=== PATIENT | male | born 1940 | race Two or more races ===

== ENCOUNTER 2019-06-28 17:28 | Inpatient (IN) | payer OTHER, MEDICAID ==
[~2019-06-28] VITALS: Ht 175.3 cm; Wt 92.1 kg
[~2019-06-28 17:28] MED LIST: AMLO5TAB9 PO; CLON0.1T14 PO; CLON0.5T PO; DIPH50CA37 PO; LISI-603 PO; PANT40TA2 PO; PRED20TA PO; TEMA30CA5 PO; TRIA60LO8 TP; TYL2T PO; [UNRECOGNIZED DRUG - CODE] PO
--- NOTE | 2019-06-28 17:35 | NUR ---
LUIZA 79 YEAR OLD MALE, CAME FROM [facility] C/O ABD PAIN, ALERT AND ORIENTED TO TACTILE STIMULI NON VERBAL. BREATHING EVEN UNLABORED. SKIN INTACT. WAITING TO BE SEEN BY .
[2019-06-28] MEDS ORDERED: IV NS 0.9% 500 ML BAG IV ONE (18:00)
[2019-06-28 18:12] LABS: BASOPHILS # (AUTO) 0.1 /CMM (0.0-0.2); BASOPHILS % (AUTO) 0.5 % (0.0-2.0); EOSINOPHILS % (AUTO) 3.1 % (0.0-6.0); HEMATOCRIT 44 % (39-51); HEMOGLOBIN 14.8 g/dL (13.5-17.5); LYMPHOCYTES % (AUTO) 25.8 % (20.0-44.0); MEAN CORPUSCULAR HGB CONC 33 g/dl (31.0-36.0); MEAN CORPUSCULAR VOLUME 90 fL (80-96); MONOCYTES # (AUTO) 1.2 /CMM (0.1-1.30); MONOCYTES % (AUTO) 10.3 % (2.0-12.0); NEUTROPHILS % (AUTO) 60.3 % (43.0-81.0); PLATELET COUNT (AUTO) 239 /CMM (150-450); RED BLOOD CELL COUNT(AUTO) 4.95 MIL/uL (4.5-6.0); WHITE BLOOD COUNT (AUTO) 11.7 K/uL (4.3-11.0)
--- NOTE | 2019-06-28 18:12 | NUR ---
URINE COLLECTED SENT TO LAB
[2019-06-28] MEDS ORDERED: GABA-534 PO (18:14)
[2019-06-28] MEDS ORDERED: CHOL20004 PO (18:14)
[2019-06-28] MEDS ORDERED: ASPI-605 PO (18:14)
[2019-06-28] MEDS ORDERED: FENO145T35 PO (18:14)
[2019-06-28] MEDS ORDERED: ATOR40TA PO (18:14)
[2019-06-28] MEDS ORDERED: GLIP10TA11 PO (18:14)
[2019-06-28] MEDS ORDERED: ISOS30TA6 PO (18:14)
--- NOTE | 2019-06-28 18:21 | NUR ---
PATIENT HAD X1 BM
[2019-06-28 18:22] LABS: CALCIUM, SERUM 9.4 mg/dL (8.5-10.1); CARBON DIOXIDE 27 mmol/L (21-32); CHLORIDE 104 mmol/L (98-107); CREATININE 1.5 mg/dL (0.6-1.3); GLUCOSE 201 mg/dL (74-106); POTASSIUM 3.5 mmol/L (3.5-5.1); SODIUM SERUM 141 mmol/L (136-145); UREA NITROGEN, BLOOD 12 mg/dL (7-18)
[2019-06-28 18:31] LABS: APPEARANCE,URINE Clear (CLEAR); BILIRUBIN,URINE Negative (NEGATIVE); BLOOD, URINE Moderate Ery/uL (NEGATIVE); COLOR,URINE Yellow (YELLOW); KETONES,URINE Trace (NEGATIVE); LEUKOCYTE ESTERASE ,URINE Negative (NEGATIVE); NITRITE, URINE Negative (NEGATIVE); PH,URINE 5.5 (5.0-8.0); PROTEIN,URINE 30 mg/dl (NEGATIVE); UGLUCOSE 250 MG/DL mg/dL (NEGATIVE)
[2019-06-28 18:36] LABS: ALANINE AMINOTRANSFERASE 18 U/L (12-78); ALBUMIN 3.5 g/dL (3.4-5.0); ALKALINE PHOSPHATASE 67 U/L (46-116); ASPARTATE AMINOTRANSFERASE 21 U/L (15-37); BILIRUBIN,DIRECT 0.2 mg/dL (0.0-0.2); BILIRUBIN,TOTAL 0.5 mg/dL (0.2-1.0); TOTAL PROTEIN, SERUM 7.3 g/dL (6.4-8.2)
--- NOTE | 2019-06-28 18:45 | NUR ---
CALLED NURSING SUP FOR TELE BED
--- NOTE | 2019-06-28 18:50 | NUR ---
TELE 114-1
[2019-06-28 19:07] LABS: WBC,URINE 0-2 /HPF (0-3)
[2019-06-28 19:08] LABS: BACTERIA,URINE Few /HPF (None Seen); SQUAMOUS EPITHELIAL CELL,UR Few /HPF (None Seen); URINE AMORPHOUS URATE Few /HPF (None Seen)
--- NOTE | 2019-06-28 19:15 | NUR ---
PT RECEIVED FROM DEMETRIUS RAMIREZ FOR FRANSICO. PT IN BED SLEEPING. NAD NOTED
--- NOTE | 2019-06-28 19:16 | NUR ---
REPORT GIVEN TO CURTIS FOR CONTINUITY OF CARE
--- NOTE | 2019-06-28 19:33 | NUR ---
PAGED DR. NICKERSON
--- NOTE | 2019-06-28 19:55 | NUR ---
PREPORT GIVEN TO DEMETRIUS OBREGON FOR FRANSICO.
--- NOTE | 2019-06-28 20:32 | NUR ---
REPAGED FOR THE 3RD TIME.
--- NOTE | 2019-06-28 21:05 | NUR ---
PT TRANSPORTED TO UNIT WITH RN AND EMT AT BEDSIDE W/ ACLS PROTOCOL. NAD NOTED DURING TRANSPORT
--- NOTE | 2019-06-28 21:30 | NUR ---
AUTOCLAVE OPERATOR ADMITTING NOTES RECEIVED REPORT FROM CURTIS ROMO. PATIENT ARRIVED VIA GURNEY & ADMITTED TO ROOM 114-1 W/ DX ALTERED MENTAL STATUS/ABDOMINAL PAIN UNDER CARE OF DR NICKERSON. PATIENT ALTERED & UNABLE TO ANSWER QUESTIONS OR FOLLOW COMMANDS BUT RESPONSIVE TO TACTILE & PAIN STIMULI. BREATHING EVEN & UNLABORED, TOLERATING ROOM AIR & SATING 96%. NO RESPIRATORY DISTRESS NOTED. ON TELE W/ SINUS RHYTHM, HR 70S. RIGHT HAND IV #22 INTACT & PATENT W/ DRESSING CDI, SALINE LOCKED. SKIN ASSESSMENT DONE W/ NO SKIN ISSUES NOTED. NO S/S OF PAIN OR DISCOMFORT @ THIS TIME. SAFETY MEASURES IN PLACE W/ SIDE RAILS UP & BED ALARM ON. AWAITING ADMITTING ORDERS. PATIENT RESTING COMFORTABLY IN BED. WILL CONTINUE TO MONITOR.
[2019-06-28 22:00] VITALS: BP 143/96
[2019-06-28 22:26] VITALS: BP_SYST 118; BP_SYST 143; BP_DIAS 61; BP_DIAS 96
[2019-06-28] MEDS ORDERED: INSULIN REGULAR, HUMAN 100 UNIT/ML 3 ML VIAL SQ PRN (23:00)
[2019-06-28] MEDS ORDERED: ZOLPIDEM TARTRATE 5 MG TABLET PO PRN (23:00)
[2019-06-28] MEDS ORDERED: MAGNESIUM HYDROXIDE 30 ML UDC PO PRN (23:00)
[2019-06-28] MEDS ORDERED: LACTULOSE 10 G/15 ML UDC (PYXIS) PO PRN (23:00)
[2019-06-28] MEDS ORDERED: DEXTROSE 50%-WATER 50 ML DISP.SYRIN IV PRN (23:00)
[2019-06-28] MEDS ORDERED: ACETAMINOPHEN 325 MG TABLET PO PRN (23:00)
[2019-06-28] MEDS ORDERED: Z GUARD REMEDY 2 OZ OINT TP PRN (23:00)
[2019-06-28] MEDS ORDERED: ONDANSETRON HCL/PF 4 MG/2 ML VIAL IVP PRN (23:00)
[2019-06-28] MEDS ORDERED: HYDROCODONE/APAP 5/325MG 1 EACH TABLET PO PRN (23:00)
[2019-06-29] VITALS: BP 152/93
[2019-06-29 04:00] VITALS: BP_SYST 163; BP_DIAS 79; BP_DIAS 99
--- NOTE | 2019-06-29 05:25 | NUR ---
CONTROL CLERK AUDITING NOTES 0520 PATIENT MORE RESPONSIVE DURING PATIENT CARE. NOTED TO BE MOVING & RAISING LEFT ARM BUT UNABLE TO MOVE RIGHT ARM. UPON FURTHER ASSESSMENT, NO FACIAL DROOP NOTED BUT UNABLE TO OPEN LEFT EYE. ALSO NON-VERBAL @ THIS TIME, ONLY MOANING. LOWER EXTREMITIES REACTIVE TO TACTILE STIMULI BUT NOTED WEAKNESS ON RIGHT LEG.
--- NOTE | 2019-06-29 05:32 | NUR ---
RIPRAP PLACING SUPERVISOR NOTES 2934 CHARGE NURSE KALEIGH & ICU ANGELLA DE DIOS @ BEDSIDE.
--- NOTE | 2019-06-29 05:35 | NUR ---
DAIRY SCIENCE TEACHER NOTES 0535 CODE STROKE CALLED.
--- NOTE | 2019-06-29 05:38 | NUR ---
INFRASTRUCTURE ANALYST NOTES 1681 NURSING DETECTIVE HOMICIDE SQUAD, COMFORT & CLIENT SERVICES SPECIALIST, [facility] [place] & @ BEDSIDE.
--- NOTE | 2019-06-29 05:40 | NUR ---
BOILERMAKER FITTER NOTES 3242 STAT LABS, EKG & CT ORDERED. ESTIMATOR JEWELRY @ BEDSIDE.
--- NOTE | 2019-06-29 05:43 | NUR ---
ASSISTANT FRONT DESK MANAGER NOTES [address]
[2019-06-29 05:54] LABS: BASOPHILS % (AUTO) 0.4 % (0.0-2.0); HEMATOCRIT 47 % (39-51); HEMOGLOBIN 15.6 g/dL (13.5-17.5); LYMPHOCYTES # (AUTO) 4.1 /CMM (0.8-4.8); LYMPHOCYTES % (AUTO) 30.6 % (20.0-44.0); MEAN CORPUSCULAR HGB CONC 33 g/dl (31.0-36.0); MEAN CORPUSCULAR VOLUME 88 fL (80-96); MONOCYTES # (AUTO) 1.2 /CMM (0.1-1.30); NEUTROPHILS # (AUTO) 7.7 /CMM (1.8-8.9); PLATELET COUNT (AUTO) 241 /CMM (150-450); RED BLOOD CELL COUNT(AUTO) 5.29 MIL/uL (4.5-6.0); WHITE BLOOD COUNT (AUTO) 13.5 K/uL (4.3-11.0)
--- NOTE | 2019-06-29 05:55 | NUR ---
SUPERVISOR FISH BAIT PROCESSING NOTES [address] NIHSS COMPLETED. NIHSS SCORE = 20.
[2019-06-29] MEDS ORDERED: BLOOD SUGAR DIAGNOSTIC 1 EACH STRIP IN SCH ×3 (06:00→07:30)
--- NOTE | 2019-06-29 06:02 | NUR ---
0602 CALLED [facility] AT [phone] TO REPORT CODE STROKE, SPOKE WITH RAJNI BARRON GIVEN ACCORDINGLY.
[2019-06-29 06:04] LABS: CALCIUM, SERUM 9.1 mg/dL (8.5-10.1); CARBON DIOXIDE 28 mmol/L (21-32); CHLORIDE 104 mmol/L (98-107); CREATININE 1.4 mg/dL (0.6-1.3); GLUCOSE 131 mg/dL (74-106); MAGNESIUM 1.8 mg/dL (1.8-2.4); POTASSIUM 3.3 mmol/L (3.5-5.1); SODIUM SERUM 144 mmol/L (136-145); UREA NITROGEN, BLOOD 9 mg/dL (7-18)
[2019-06-29 06:10] LABS: CHOLESTEROL 169 mg/dL (<200); CREATINE KINASE, TOTAL 140 U/L (39-308); HDL CHOLESTEROL 44 mg/dL (40-60); LDL 112 mg/dL (0-99); TRIGLYCERIDES 115 mg/dL (30-150)
--- NOTE | 2019-06-29 06:10 | NUR ---
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
--- NOTE | 2019-06-29 06:10 | NUR ---
[address] LOZA AND NOTIFIED HIM OF PATIENT'S CHANGE OF CONDITION WITH NO ORDER AT THIS TIME.
[2019-06-29 06:11] LABS: C-REACTIVE PROTEIN 2.7 mg/dL (0.0-0.9)
[2019-06-29] MEDS ORDERED: IV NS 0.9% 250 ML IV ONE (06:15)
[2019-06-29] MEDS ORDERED: CT SWABBABLE VALVE TRANS SET 1 EA INFUS.SET MC ONE (06:15)
[2019-06-29] MEDS ORDERED: IOHEXOL-350 100 ML VIAL IV ONE (06:15)
--- NOTE | 2019-06-29 06:30 | NUR ---
0630 RE ASSESSMENT DONE. PATIENT REMAINS ALTERED, NON VERBAL. RESPONDS TO TACTILE STIMULI. STILL NO MOVEMENT ON RIGHT UPPER EXTREMITY NOTED. DOES NOT OPEN EYES TO ANY STIMULI. NO SIGNS OF DISTRESS NOTED. B/P 148/84, HR 67 OS SAT 98% ON 2LPM. KEPT CLEAN AND COMFORTABLE. WILL CONT. TO MONITOR CLOSELY.
--- NOTE | 2019-06-29 06:52 | NUR ---
0652 DR VALADEZ WAS NOTIFIED OF CTA HEAD RESULT, HE SAID TO CALL INVESTIGATIVE ANALYST.
--- NOTE | 2019-06-29 06:55 | NUR ---
0655 DR NICKERSON UPDATED AND NOTIFIED OF CTA OF HEAD RESULT WITH NO ORDER AT THIS TIME.
--- NOTE | 2019-06-29 07:00 | NUR ---
CUSTOMER SERVICE COORDINATOR NOTES [address] BERMUDEZ VIA [facility] & UPDATED OF PATIENT'S CONDITION. NO NEW ORDERS RECEIVED @ THIS TIME. DR NICKERSON ALSO @ BEDSIDE.
--- NOTE | 2019-06-29 07:00 | NUR ---
0700 CALLED [facility] CRITICAL TEAM TO REPORT CODE STROKE, SPOKE WITH KENYA AND HE REQUESTED TO FAX FACE SHEET AND CT RESULTS TO [phone]. PER KENYA DOCTOR WILL CALL US WITHIN 10 MINUTES.
--- NOTE | 2019-06-29 07:05 | NUR ---
[address] RESULTS FAXED TO [facility] CRITICAL TEAM.
--- NOTE | 2019-06-29 07:15 | NUR ---
0715 DR SHIELDS OF [facility] CRITICAL TEAM CALLED AND UPDATED ON PATIENT'S CONDITION, ALL CT RESULTS RELAYED TO HIM. HE SAID PATIENT WILL BE TRANSFERRED TO [facility] FOR HIGHER LEVEL OF CARE.
--- NOTE | 2019-06-29 07:20 | NUR ---
0703 REPORT GIVEN TO CHARGE NURSE KAMALA FOR CONTINUITY OF CARE WILL ALL QUESTIONS ANSWERED.
[2019-06-29] MEDS ORDERED: ASPI-1152 PO (07:26)
[2019-06-29] MEDS ORDERED: INSU100V28 SQ (07:26)
--- NOTE | 2019-06-29 07:30 | NUR ---
RN NOTE: RECEIVED PATIENT IN BED, ASLEEP AND SNORING AT THE BED. PATIENT WAS NONVERBAL, BUT CAN SPONTANEOUSLY OPEN HIS EYES. HOB ELEVATED. RESPIRATION WAS EVEN AND UNLABORED SATURATING 99% WITH O2 2L/MIN VIA NC. ON MEDICARE BILLER SR HR= 68. PATIENT WAS NOTED WITH (R) HAND 22G IV SITE NOTED PATENT AND INTACT. BED ALARMED AND LOCKED AT ALL TIMES AND ON LOWEST POSITION. PER PM SHIFT NURSE, PATIENT WILL BE TRANSFER TO [facility] DUE TO STROKE. ALL PAPERWORK WAS FAXED TO [facility]. AWAITING FOR THE TRANSPORTATION ARRANGED BY THE CRITICAL CARE TEAM AT [facility] ADARSH ZAMBRANO. DR. SHIELDS (TELENEUROLOGIST) ASKED PM SHIFT NURSE TO CALL AND INFORM THE PATIENT'S FAMILY/RELATIVE. WILMER WRAY CALLED THE BOARD AND CARE [facility] AND ACCORDING TO THE FACILITY STAFF THE PATIENT WAS SELF-RESPONSIBLE AND NO FAMILY WAS INVOLVE ON THE PATIENT'S CARE. WILL UPDATE THE ROUNDING DOCTOR FOR TODAY AND WILL PREPARE EXIT CARE. NEEDS ANTICIPATED.
--- NOTE | 2019-06-29 07:35 | NUR ---
RN NOTE: RECEIVED A PHONE CALL FROM KENYA CRITICAL CARE TEAM FROM [facility] AND ACCORDING TO HIM THE ARRANGEMENT FOR THE PATIENT'S TRANSPORT TO THE OTHER [facility] WAS ALREADY ARRANGED AND THE TEAM WAS ALREADY IN THEIR UNIT. NO ETA WAS MENTIONED, BUT WILL CLOSELY MONITOR THE PATIENT. AM CARE WAS PROVIDED TO THE PATIENT.
[2019-06-29 08:00] VITALS: BP 144/78
--- NOTE | 2019-06-29 08:10 | NUR ---
RN NOTE: CALLED AND SPOKE WITH DEMETRIUS SOTELO FROM [facility] AND ACCORDING TO HER SHE WILL BE THE RECEIVING NURSE FOR THE PATIENT AND THE TRANSPORT TEAM WAS ON THE WAY. EXIT CARE WAS DONE. DR. NICKERSON WAS IN THE UNIT AND AWARE OF THE PATIENT'S CHANGE OF CONDITION.
--- NOTE | 2019-06-29 08:25 | NUR ---
RN NOTE: PATIENT WAS TRANSPORTED TO [facility] VIA ACLS PROTOCOL ACCOMPANIED BY 1 SALESPERSON AUTOMOBILES AND 2 green chain offbearer VIA [place]. HEPARIN SQ WAS ADMINISTERED PRIOR TO TRANSFER. ALL PAPERWORK WAS RELEASED INCLUDING ALL PATIENT BELONGINGS WERE TRANSPORTED UPON DISCHARGE. BEDSIDE REPORT WAS GIVEN TO DEMETRIUS SOTELO FROM [facility].
[2019-06-29] MEDS ORDERED: ISOSORBIDE MONONITRATE (30MG) 30 MG TAB.SR.24H PO SCH (09:00)
[2019-06-29] MEDS ORDERED: glipiZIDE 10 MG TABLET PO SCH (09:00)
[2019-06-29] MEDS ORDERED: AMLODIPINE BESYLATE 5 MG TABLET PO SCH (09:00)
[2019-06-29] MEDS ORDERED: GABAPENTIN 300 MG CAPSULE PO SCH (09:00)
[2019-06-29] MEDS ORDERED: FENOFIBRATE NANOCRYS (145 MG) 145 MG TABLET PO SCH (09:00)
[2019-06-29] MEDS ORDERED: ASPIRIN EC 81 MG TABLET.DR PO SCH (09:00)
[2019-06-29] MEDS ORDERED: ASPIRIN 325 MG TABLET PO SCH (09:00)
[2019-06-29] MEDS ORDERED: HEPARIN SODIUM, PORCINE 5000 UNITS/1 ML VIAL SQ SCH (09:00)
--- NOTE | 2019-06-29 09:00 | NUR ---
Social service consult requested by Dr. Bustamante for stroke. SW was unable to assess pt. because pt. was transferred to [facility] at 8:30AM
[2019-06-29] MEDS ORDERED: ATORVASTATIN 40 MG TABLET PO SCH (22:00)
[2019-06-30 11:06] LABS: *SPE A/G RATIO 1.1 (0.7-1.7); *SPE ALBUMIN 3.7 g/dL (2.9-4.4); *SPE ALPHA-1-GLOBULIN 0.3 g/dL (0.0-0.4); *SPE ALPHA-2-GLOBULIN 0.8 g/dL (0.4-1.0); *SPE BETA GLOBULIN 1.2 g/dL (0.7-1.3); *SPE GLOBULIN, TOTAL 3.3 g/dL (2.2-3.9); *SPE M-SPIKE Not Observed g/dL (Not Observed)
[2019-06-30 12:06] LABS: PTH, INTACT 19 pg/mL (15-65)
== END 2019-06-29 08:39 | disposition short-term general hospital (02) | DRG 64 ==
LOC: ER 17:35 → TELE1 19:16 → TELE-TD 06-29 06:35
PROVIDERS: ADMIT Internal Medicine; ATTEND Internal Medicine
DX: I63.312 Cerebral infarction due to thrombosis of left middle cerebral artery (principal); N17.0 Acute kidney failure with tubular necrosis; G93.40 Encephalopathy, unspecified; G81.90 Hemiplegia, unspecified affecting unspecified side; R47.01 Aphasia; R10.9 Unspecified abdominal pain; E78.5 Hyperlipidemia, unspecified; E11.9 Type 2 diabetes mellitus without complications; F41.9 Anxiety disorder, unspecified; I10 Essential (primary) hypertension; R29.725 NIHSS score 25; Z79.82 Long term (current) use of aspirin; K56.41 Fecal impaction
CPT/HCPCS: 36415; 70450-TC; 70496-TC; 70498-TC; 71045-TC; 80048-TC; 80061-TC; 80076-TC; 81000-TC; 82550-TC; 82962-TC; 83605-TC; 83735-TC; 83970; 84100-TC; 84155; 84165; 84484-TC; 85025-TC; 85730-TC; 86140-TC; 87040-TC; 87081-TC; 87086-TC; G0378; J1644; J1815; J7040; J7050; Q9967